=== PATIENT | female | born 1995 | race Caucasian/White ===

== ENCOUNTER 2016-05-09 22:03 | Emergency (ER) | payer OTHER ==
[~2016-05-09] VITALS: Ht 149.8 cm; Wt 57.6 kg
[~2016-05-09 22:03] MED LIST: AMOXICILLIN500 MG PO; ANTIBIOTIC O500 U/GM TP; AUGMENTIN 875 M1 TAB PO; AUGMENTIN 875875 MG PO; BACTRIM DS 8001 TA1 PO; BIRTH CONTROL1 EACH PO; CEPHALEXIN500 M1 PO; CIPROFLOXACIN500 MG PO; CLARITIN10 MG PO; COLACE100 MG PO; IBU800 M1 PO; IRON CHELATED325 MG PO; KEFLEX500 MG PO; MOTRIN600 MG PO; MOTRIN800 MG PO; PHENERGAN25 M1 PO; PREDNICOT10 MG PO; PRENATAL 1 MG +1 TAB PO; PRENATAL1 TA3 PO; PYRIDIUM200 M1 PO; PYRIDIUM200 MG PO; ROBITUSSIN DM120 ML PO; TRAMADOL HCL50 MG PO; TYLENOL325 M2 PO; ZITHROMAX Z PA250 MG PO; ZOFRAN4 MG PO; [UNRECOGNIZED DRUG - REMARK]
[2016-05-09 22:06] VITALS: BP 144/95
[2016-05-09 23:10] LABS: BILIRUBIN NEGATIVE (NEGATIVE); BLOOD NEGATIVE (NEGATIVE); CLARITY CLEAR (CLEAR); COLOR YELLOW (YELLOW); GLUCOSE NEGATIVE (NEGATIVE); KETONE NEGATIVE (NEGATIVE); LEUKO ESTERASE NEGATIVE (NEGATIVE); NITRITE NEGATIVE (NEGATIVE); PROTEIN NEGATIVE (NEGATIVE); UROBILINOGEN 0.2 E.U./dl (0.2-1.0)
[2016-05-09 23:19] LABS: BACTERIA TRACE; URINE REFLEX COMMENT NO (NO)
[2016-05-09] MEDS ORDERED: ZOFRAN ODT4 MG SL (23:55)
[2016-05-09] MEDS ORDERED: TESSALON PERLE100 M1 PO (23:55)
[2016-05-09] MEDS ORDERED: CLARITIN-D 12 H1 TAB PO (23:55)
[2016-06-04] MEDS ORDERED: Motrin,Rufen800 MG PO (10:29)
[2016-06-04] MEDS ORDERED: NORCO 10-325 T1 EACH PO (10:35)
== END 2016-05-10 00:33 | disposition home or self-care (01) ==
LOC: ED 22:03
PROVIDERS: Physician Assistant
DX: B34.9 Viral infection, unspecified (principal); Z98.890 Other specified postprocedural states; Z98.51 Tubal ligation status

== ENCOUNTER 2016-10-26 21:11 | Emergency (ER) | payer OTHER ==
[~2016-10-26] VITALS: Ht 149.8 cm; Wt 60.8 kg
[~2016-10-26 21:11] MED LIST changes: +CLARITIN-D 12 H1 TAB PO; +Motrin,Rufen800 MG PO; +NORCO 10-325 T1 EACH PO; +TESSALON PERLE100 M1 PO; +ZOFRAN ODT4 MG SL
[2016-10-26 21:27] VITALS: BP 134/77
[2016-10-26] MEDS ORDERED: AMOXICILLIN500 M2 PO (21:51)
[2016-10-26] MEDS ORDERED: Motrin,Rufen800 MG PO (21:51)
== END 2016-10-26 21:58 | disposition home or self-care (01) ==
LOC: ED 21:11
DX: K08.89 Other specified disorders of teeth and supporting structures (principal)

== ENCOUNTER 2017-02-21 20:14 | Emergency (ER) | payer SELFPAY ==
[~2017-02-21] VITALS: Ht 149.8 cm; Wt 60.8 kg
[~2017-02-21 20:14] MED LIST changes: +AMOXICILLIN500 M2 PO
[2017-02-21 20:28] VITALS: BP 127/80
[2017-02-21 20:43] LABS: BILIRUBIN NEGATIVE (NEGATIVE); BLOOD 2+ (NEGATIVE); CLARITY CLOUDY (CLEAR); COLOR YELLOW (YELLOW); GLUCOSE NEGATIVE (NEGATIVE); KETONE TRACE (NEGATIVE); LEUKO ESTERASE NEGATIVE (NEGATIVE); NITRITE NEGATIVE (NEGATIVE); PH 8.5 (5.0-9.0); SPECIFIC GRAVITY 1.015 (1.005-1.030)
[2017-02-21 20:54] LABS: BACTERIA 2+
[2017-02-21 21:01] LABS: BASO # 0.1 10*3/uL (0.0-0.1); BASO % 0.5 % (0.0-1.0); EOS # 0.1 10*3/uL (0.0-0.4); EOS % 0.5 % (1.0-4.0); HEMATOCRIT 36.9 % (37.0-47.0); HEMOGLOBIN 11.6 g/dl (12.0-16.0); LYMPH # 2.5 10*3/uL (1.3-4.4); LYMPH % 26.8 % (27.0-41.0); MEAN CELL VOLUME 81.5 fl (81.0-99.0); MEAN CORPUSCULAR HGB 25.6 pg (27.0-31.0); MEAN CORPUSCULAR HGB CONC 31.4 g/dl (33.0-37.0); MEAN PLATELET VOLUME 11.6 fl (9.6-12.3); MONO # 0.7 10*3/uL (0.1-1.0); MONO % 7.1 % (3.0-9.0); NEUT # 6.2 10*3/uL (2.3-7.9); NEUT % 64.9 % (47.0-73.0); PLATELET COUNT AUTOMATED 338 10*3/uL (130-400); RED BLOOD COUNT 4.53 10*6/uL (4.10-5.10); RED CELL DISTRI WIDTH 15.1 % (0-14.5); WHITE BLOOD COUNT 9.5 10*3/uL (4.8-10.8)
[2017-02-21 21:15] LABS: ALBUMIN 3.8 gm/dl (3.1-4.5); ALKALINE PHOSPHATASE 166 U/L (45-117); BUN 12 mg/dl (7-24); CHLORIDE 106 mmol/L (98-107); CREATININE 0.74 mg/dL (0.55-1.02); LIPASE 102 U/L (73-393); POTASSIUM 3.9 mmol/L (3.5-5.1); SGOT/AST 14 IU/L (3-35); SGPT/ALT 25 U/L (12-78); SODIUM 141 mmol/L (136-145); TOTAL PROTEIN 7.9 gm/dL (6.4-8.2)
[2017-02-21] MEDS ORDERED: ULTRAM50 MG PO (21:54)
[2017-02-21] MEDS ORDERED: MACROBID100 M1 PO (21:54)
[2017-02-21] MEDS ORDERED: NYSTATIN CREAM15 GM T (22:03)
== END 2017-02-21 20:40 | disposition home or self-care (01) ==
LOC: ED 20:14
PROVIDERS: Emergency Medicine Emergency Medical Services
DX: N30.90 Cystitis, unspecified without hematuria (principal)

== ENCOUNTER 2017-06-20 19:37 | Emergency (ER) | payer SELFPAY ==
[~2017-06-20] VITALS: Ht 152.4 cm; Wt 56.2 kg
[~2017-06-20 19:37] MED LIST changes: +MACROBID100 M1 PO; +NYSTATIN CREAM15 GM T; +ULTRAM50 MG PO
[2017-06-20 19:57] LABS: BILIRUBIN NEGATIVE (NEGATIVE); BLOOD TRACE-INTACT (NEGATIVE); CLARITY SL CLOUDY (CLEAR); COLOR YELLOW (YELLOW); GLUCOSE NEGATIVE (NEGATIVE); KETONE NEGATIVE (NEGATIVE); LEUKO ESTERASE NEGATIVE (NEGATIVE); NITRITE POSITIVE (NEGATIVE); PH 7.5 (5.0-9.0)
[2017-06-20 20:08] LABS: BACTERIA 4+; WBC 0-2 wbc/hpf (0-5)
[2017-06-20 20:31] VITALS: BP 132/75
[2017-06-20] MEDS ORDERED: MACROBID100 M1 PO (20:47)
[2017-06-20] MEDS ORDERED: Motrin,Rufen800 MG PO (20:47)
[2017-06-20] MEDS ORDERED: CYCLOBENZAPRINE5 M3 PO (20:47)
== END 2017-06-20 20:42 | disposition home or self-care (01) ==
LOC: ED 19:37
PROVIDERS: Emergency Medicine Emergency Medical Services
DX: S39.012A Strain of muscle, fascia and tendon of lower back, initial encounter (principal); N39.0 Urinary tract infection, site not specified; X50.3XXA Overexertion from repetitive movements, initial encounter; Y93.89 Activity, other specified; Y92.89 Other specified places as the place of occurrence of the external cause; Y99.8 Other external cause status

== ENCOUNTER 2018-06-21 12:45 | Emergency (ER) | payer OTHER ==
[~2018-06-21] VITALS: Ht 149.8 cm; Wt 60.8 kg
[~2018-06-21 12:45] MED LIST changes: +CYCLOBENZAPRINE5 M3 PO; +IBUPROFEN600 MG PO; +SEPTDS PO
[2018-06-21 12:46] VITALS: BP 135/85
[2018-06-21 13:05] LABS: BILIRUBIN NEGATIVE (NEGATIVE); BLOOD 2+ (NEGATIVE); CLARITY SL CLOUDY (CLEAR); COLOR YELLOW (YELLOW); GLUCOSE NEGATIVE (NEGATIVE); KETONE NEGATIVE (NEGATIVE); LEUKO ESTERASE NEGATIVE (NEGATIVE); NITRITE NEGATIVE (NEGATIVE); SPECIFIC GRAVITY 1.025 (1.005-1.030); UROBILINOGEN 0.2 E.U./dl (0.2-1.0)
[2018-06-21 13:12] LABS: BASO % 0.3 % (0.0-1.0); EOS # 0.1 10*3/uL (0.0-0.4); EOS % 1.1 % (1.0-4.0); HEMATOCRIT 38.9 % (37.0-47.0); HEMOGLOBIN 11.8 g/dl (12.0-16.0); LYMPH # 1.8 10*3/uL (1.3-4.4); LYMPH % 26.8 % (27.0-41.0); MEAN CELL VOLUME 82.8 fl (81.0-99.0); MEAN CORPUSCULAR HGB 25.1 pg (27.0-31.0); MEAN CORPUSCULAR HGB CONC 30.3 g/dl (33.0-37.0); MEAN PLATELET VOLUME 11.7 fl (9.6-12.3); MONO # 0.8 10*3/uL (0.1-1.0); MONO % 11.7 % (3.0-9.0); NEUT % 59.8 % (47.0-73.0); PLATELET COUNT AUTOMATED 272 10*3/uL (130-400); RED CELL DISTRI WIDTH 16.3 % (0-14.5); WHITE BLOOD COUNT 6.6 10*3/uL (4.8-10.8)
[2018-06-21 13:16] LABS: BACTERIA TRACE; EPITHELIAL CELLS 16-20; MUCOUS 3+
[2018-06-21 13:21] LABS: ACT PARTIAL THROMBO TIME 25.9 SECONDS (20.8-31.5); INTERNATIONAL NORM RATIO 1.1 (2.0-3.5)
[2018-06-21 13:31] LABS: BUN 13 mg/dl (7-24); CHLORIDE 109 mmol/L (98-107); CREATININE 0.75 mg/dL (0.55-1.02); POTASSIUM 3.7 mmol/L (3.5-5.1); SODIUM 141 mmol/L (136-145)
[2018-06-21 13:36] LABS: BETA-HCG, QUANT < 1.0 mIU/mL (1-3)
[2018-08-13] MEDS ORDERED: AMOXICILLIN500 M2 PO (11:57)
[2018-08-13] MEDS ORDERED: FLONASE ALLERG9.9 ML NAS (11:57)
[2018-11-01] MEDS ORDERED: AUGMENTIN 875-875 MG PO (12:12)
[2018-11-01] MEDS ORDERED: CORTISPORIN SUS10 ML OT (12:12)
== END 2018-06-21 14:44 | disposition home or self-care (01) ==
LOC: ED 12:45
PROVIDERS: Emergency Medicine
DX: N92.1 Excessive and frequent menstruation with irregular cycle (principal); F17.200 Nicotine dependence, unspecified, uncomplicated; Z98.890 Other specified postprocedural states; Z98.51 Tubal ligation status; Z79.899 Other long term (current) drug therapy

== ENCOUNTER 2018-10-20 17:07 | Emergency (ER) | payer OTHER ==
[~2018-10-20] VITALS: Ht 152.4 cm; Wt 59.0 kg
[~2018-10-20 17:07] MED LIST changes: +FLONASE ALLERG9.9 ML NAS
[2018-10-20 17:24] LABS: BILIRUBIN NEGATIVE (NEGATIVE); BLOOD 3+ (NEGATIVE); CLARITY SL CLOUDY (CLEAR); COLOR YELLOW (YELLOW); GLUCOSE NEGATIVE (NEGATIVE); KETONE NEGATIVE (NEGATIVE); LEUKO ESTERASE 1+ (NEGATIVE); NITRITE POSITIVE (NEGATIVE); PH 7.5 (5.0-9.0); UROBILINOGEN 0.2 E.U./dl (0.2-1.0)
[2018-10-20 17:31] LABS: BACTERIA 4+; RBC TNTC rbc/hpf (0-2)
[2018-10-20 18:00] LABS: BASO # 0.1 10*3/uL (0.0-0.1); BASO % 0.4 % (0.0-1.0); EOS % 0.3 % (1.0-4.0); HEMATOCRIT 38.7 % (37.0-47.0); HEMOGLOBIN 12.1 g/dl (12.0-16.0); LYMPH # 1.4 10*3/uL (1.3-4.4); LYMPH % 11.8 % (27.0-41.0); MEAN CORPUSCULAR HGB 25.6 pg (27.0-31.0); MEAN CORPUSCULAR HGB CONC 31.3 g/dl (33.0-37.0); MEAN PLATELET VOLUME 12.2 fl (9.6-12.3); MONO # 0.8 10*3/uL (0.1-1.0); MONO % 6.6 % (3.0-9.0); NEUT # 9.5 10*3/uL (2.3-7.9); NEUT % 80.6 % (47.0-73.0); PLATELET COUNT AUTOMATED 275 10*3/uL (130-400); RED BLOOD COUNT 4.72 10*6/uL (4.10-5.10); RED CELL DISTRI WIDTH 15.4 % (0-14.5); WHITE BLOOD COUNT 11.8 10*3/uL (4.8-10.8)
[2018-10-20 18:14] LABS: ALBUMIN 3.9 gm/dl (3.1-4.5); ALKALINE PHOSPHATASE 129 U/L (45-117); BUN 14 mg/dl (7-24); CHLORIDE 104 mmol/L (98-107); CREATININE 0.72 mg/dL (0.55-1.02); LIPASE 48 U/L (73-393); POTASSIUM 3.9 mmol/L (3.5-5.1); SGOT/AST 11 IU/L (3-35); SGPT/ALT 16 U/L (12-78); SODIUM 138 mmol/L (136-145); TOTAL PROTEIN 8.2 gm/dL (6.4-8.2)
[2018-10-20 19:37] VITALS: BP 115/63
[2018-10-20] MEDS ORDERED: SEPTDS PO (20:47)
[2018-10-20] MEDS ORDERED: PYRIDIUM100 MG PO (20:47)
[2018-11-01] MEDS ORDERED: AUGMENTIN 875-875 MG PO (12:12)
[2018-11-01] MEDS ORDERED: CORTISPORIN SUS10 ML OT (12:12)
== END 2018-10-20 20:56 | disposition home or self-care (01) ==
LOC: ED 17:07
PROVIDERS: Nurse Practitioner Family
DX: N39.0 Urinary tract infection, site not specified (principal); R51 Headache; M54.2 Cervicalgia; R50.9 Fever, unspecified; F17.200 Nicotine dependence, unspecified, uncomplicated; Z87.440 Personal history of urinary (tract) infections

== ENCOUNTER 2019-03-17 18:27 | Emergency (ER) | payer OTHER ==
[~2019-03-17] VITALS: Ht 149.8 cm; Wt 60.8 kg
[~2019-03-17 18:27] MED LIST changes: +AUGMENTIN 875-875 MG PO; +CORTISPORIN SUS10 ML OT; +PYRIDIUM100 MG PO
[2019-03-17 18:30] VITALS: BP 128/79
[2019-03-17] MEDS ORDERED: ZYRTEC10 MG PO (19:22)
[2019-03-17] MEDS ORDERED: AMOXICILLIN500 M2 PO (19:22)
== END 2019-03-17 19:30 | disposition home or self-care (01) ==
LOC: ED 18:27
DX: H66.92 Otitis media, unspecified, left ear (principal); H92.01 Otalgia, right ear; J02.9 Acute pharyngitis, unspecified; R05 Cough; R51 Headache; R09.81 Nasal congestion; R19.7 Diarrhea, unspecified; F17.200 Nicotine dependence, unspecified, uncomplicated

== ENCOUNTER 2019-06-01 12:04 | Emergency (ER) | payer OTHER ==
[~2019-06-01] VITALS: Ht 149.8 cm; Wt 60.8 kg
[~2019-06-01 12:04] MED LIST changes: +ZYRTEC10 MG PO
[2019-06-01 12:42] LABS: CLARITY SL CLOUDY (CLEAR)
[2019-06-01 12:43] LABS: BILIRUBIN NEGATIVE (NEGATIVE); BLOOD 3+ (NEGATIVE); COLOR ORANGE (YELLOW); GLUCOSE NEGATIVE (NEGATIVE); KETONE NEGATIVE (NEGATIVE); LEUKO ESTERASE 2+ (NEGATIVE); NITRITE POSITIVE (NEGATIVE); PH 6.5 (5.0-9.0); UROBILINOGEN 0.2 E.U./dl (0.2-1.0)
[2019-06-01 12:51] LABS: BACTERIA 3+; RBC 16-20 rbc/hpf (0-2); WBC TNTC wbc/hpf (0-5)
[2019-06-01 14:05] LABS: BASO % 0.3 % (0.0-1.0); EOS % 0.1 % (1.0-4.0); HEMATOCRIT 40.8 % (37.0-47.0); HEMOGLOBIN 12.7 g/dl (12.0-16.0); LYMPH # 0.9 10*3/uL (1.3-4.4); LYMPH % 7.9 % (27.0-41.0); MEAN CELL VOLUME 84.5 fl (81.0-99.0); MEAN CORPUSCULAR HGB 26.3 pg (27.0-31.0); MEAN CORPUSCULAR HGB CONC 31.1 g/dl (33.0-37.0); MEAN PLATELET VOLUME 12.5 fl (9.6-12.3); MONO # 1.2 10*3/uL (0.1-1.0); MONO % 11.1 % (3.0-9.0); NEUT # 8.7 10*3/uL (2.3-7.9); NEUT % 80.3 % (47.0-73.0); PLATELET COUNT AUTOMATED 239 10*3/uL (130-400); RED BLOOD COUNT 4.83 10*6/uL (4.10-5.10); RED CELL DISTRI WIDTH 14.5 % (0-14.5); WHITE BLOOD COUNT 10.9 10*3/uL (4.8-10.8)
[2019-06-01 14:21] LABS: ALBUMIN 3.9 gm/dl (3.1-4.5); ALKALINE PHOSPHATASE 121 U/L (45-117); BUN 8 mg/dl (7-24); CHLORIDE 105 mmol/L (98-107); CREATININE 0.87 mg/dL (0.55-1.02); LIPASE 37 U/L (73-393); POTASSIUM 3.4 mmol/L (3.5-5.1); SGOT/AST 19 IU/L (3-35); SGPT/ALT 34 U/L (12-78); SODIUM 137 mmol/L (136-145); TOTAL PROTEIN 8.6 gm/dL (6.4-8.2)
[2019-06-01 14:41] VITALS: BP 121/69
[2019-06-01] MEDS ORDERED: PYRIDIUM200 M1 PO (15:55)
[2019-06-01] MEDS ORDERED: SEPTDS PO (15:55)
[2019-06-01] MEDS ORDERED: IBUPROFEN600 MG PO (15:55)
== END 2019-06-01 16:03 | disposition home or self-care (01) ==
LOC: ED 12:04
PROVIDERS: Emergency Medicine; Physician Assistant
DX: N39.0 Urinary tract infection, site not specified (principal); Z79.899 Other long term (current) drug therapy

== ENCOUNTER 2019-12-11 13:58 | Emergency (ER) | payer OTHER ==
[~2019-12-11] VITALS: Wt 62.6 kg
[2019-12-11 14:09] VITALS: BP 117/71
[2019-12-11 14:43] LABS: BASO # 0.1 10*3/uL (0.0-0.1); BASO % 0.6 % (0.0-1.0); EOS # 0.1 10*3/uL (0.0-0.4); EOS % 0.9 % (1.0-4.0); HEMATOCRIT 39.7 % (37.0-47.0); LYMPH # 1.8 10*3/uL (1.3-4.4); LYMPH % 22.4 % (27.0-41.0); MEAN CELL VOLUME 83.1 fl (81.0-99.0); MEAN CORPUSCULAR HGB 25.9 pg (27.0-31.0); MEAN CORPUSCULAR HGB CONC 31.2 g/dl (33.0-37.0); MEAN PLATELET VOLUME 11.7 fl (9.6-12.3); MONO # 0.6 10*3/uL (0.1-1.0); MONO % 7.3 % (3.0-9.0); NEUT # 5.6 10*3/uL (2.3-7.9); NEUT % 68.7 % (47.0-73.0); PLATELET COUNT AUTOMATED 313 10*3/uL (130-400); RED BLOOD COUNT 4.78 10*6/uL (4.10-5.10); RED CELL DISTRI WIDTH 14.6 % (0-14.5); WHITE BLOOD COUNT 8.1 10*3/uL (4.8-10.8)
[2019-12-11 14:43] LABS: BILIRUBIN NEGATIVE; BLOOD 3+ (NEGATIVE); CLARITY CLOUDY (CLEAR); COLOR YELLOW (YELLOW); GLUCOSE NEGATIVE; KETONE NEGATIVE; LEUKO ESTERASE NEGATIVE (NEGATIVE); NITRITE NEGATIVE (NEGATIVE); SPECIFIC GRAVITY 1.015 (1.001-1.030)
[2019-12-11 14:48] LABS: BACTERIA 4+; RBC 0-2 rbc/hpf (0-2)
[2019-12-11 14:53] LABS: ALBUMIN 3.9 gm/dl (3.1-4.5); ALKALINE PHOSPHATASE 128 U/L (45-117); BUN 10 mg/dl (7-24); CHLORIDE 110 mmol/L (98-107); CREATININE 0.83 mg/dL (0.55-1.02); POTASSIUM 3.8 mmol/L (3.5-5.1); SGOT/AST 13 IU/L (3-35); SGPT/ALT 17 U/L (12-78); SODIUM 141 mmol/L (136-145); TOTAL PROTEIN 8.1 gm/dL (6.4-8.2)
[2019-12-11 15:01] LABS: BETA-HCG, QUANT < 1.0 mIU/mL (1-3)
== END 2019-12-11 15:43 | disposition home or self-care (01) ==
LOC: ED 13:58
PROVIDERS: Nurse Practitioner Family
DX: N93.8 Other specified abnormal uterine and vaginal bleeding (principal); Z98.890 Other specified postprocedural states; Z98.51 Tubal ligation status; Z79.899 Other long term (current) drug therapy

== ENCOUNTER 2019-12-28 13:58 | Emergency (ER) | payer OTHER ==
[~2019-12-28] VITALS: Ht 149.8 cm; Wt 60.8 kg
[2019-12-28 14:07] VITALS: BP 124/82
== END 2019-12-28 16:28 | disposition home or self-care (01) ==
LOC: ED 13:58
DX: S63.502A Unspecified sprain of left wrist, initial encounter (principal); F17.200 Nicotine dependence, unspecified, uncomplicated; Z79.899 Other long term (current) drug therapy; X58.XXXA Exposure to other specified factors, initial encounter; Y93.89 Activity, other specified; Y92.89 Other specified places as the place of occurrence of the external cause; Y99.8 Other external cause status

== ENCOUNTER 2020-05-09 18:29 | Emergency (ER) | payer OTHER ==
[~2020-05-09] VITALS: Ht 149.8 cm; Wt 59.0 kg
[2020-05-09 19:39] LABS: BILIRUBIN Negative (Negative); BLOOD Negative (Negative); CLARITY Cloudy (Clear); COLOR Yellow (Yellow); GLUCOSE Negative (Negative); KETONE Negative (Negative); LEUKO ESTERASE Negative (Negative); NITRITE Negative (Negative); UROBILINOGEN 0.2 E.U./dl (0.0-1.0)
[2020-05-09 19:49] LABS: PH 8.5 (4.5-8.0)
[2020-05-09 19:52] LABS: BASO # 0.1 10*3/uL (0.0-0.1); BASO % 0.5 % (0.0-1.0); EOS % 0.3 % (1.0-4.0); HEMATOCRIT 39.1 % (37.0-47.0); LYMPH # 0.4 10*3/uL (1.3-4.4); LYMPH % 3.8 % (27.0-41.0); MEAN CELL VOLUME 83.7 fl (81.0-99.0); MEAN CORPUSCULAR HGB 25.3 pg (27.0-31.0); MEAN CORPUSCULAR HGB CONC 30.2 g/dl (33.0-37.0); MEAN PLATELET VOLUME 11.5 fl (9.6-12.3); MONO # 0.9 10*3/uL (0.1-1.0); MONO % 8.1 % (3.0-9.0); NEUT # 9.7 10*3/uL (2.3-7.9); NEUT % 86.8 % (47.0-73.0); PLATELET COUNT AUTOMATED 290 10*3/uL (130-400); RED BLOOD COUNT 4.67 10*6/uL (4.10-5.10); RED CELL DISTRI WIDTH 15.3 % (0-14.5); WHITE BLOOD COUNT 11.1 10*3/uL (4.8-10.8)
[2020-05-09 19:54] LABS: EPITHELIAL CELLS 16-20
[2020-05-09 19:55] LABS: BACTERIA 1+; RBC 0-2 rbc/hpf (0-2); WBC 0-2 wbc/hpf (0-5)
[2020-05-09 20:08] LABS: ALKALINE PHOSPHATASE 146 U/L (45-117); BUN 10 mg/dl (7-24); CHLORIDE 105 mmol/L (98-107); CREATININE 0.85 mg/dL (0.55-1.02); POTASSIUM 3.9 mmol/L (3.5-5.1); SGOT/AST 15 IU/L (3-35); SGPT/ALT 29 U/L (12-78); SODIUM 137 mmol/L (136-145); TOTAL PROTEIN 8.1 gm/dL (6.4-8.2)
[2020-05-09 22:51] VITALS: BP 120/74
[2020-05-10 01:34] LABS: URINE AMPHETAMINES < 1000 (1000ng/ml); URINE BARBITURATES < 200 (200ng/ml); URINE BENZODIAZEPINES < 200 (200ng/ml); URINE CANNABINOIDS (THC) > 50 (50ng/ml); URINE COCAINE < 300 (300ng/ml); URINE METHADONE < 300 (300ng/ml); URINE OPIATES < 300 (300ng/ml)
[2020-05-10 01:35] LABS: URINE PHENCYCLIDINE < 25 (25ng/ml)
== END 2020-05-10 02:37 | disposition left against medical advice (07) ==
LOC: ED 18:29
PROVIDERS: Emergency Medicine
DX: U07.1 COVID-19 (principal)

== ENCOUNTER 2020-12-11 12:13 | Emergency (ER) | payer OTHER ==
[~2020-12-11] VITALS: Ht 162.5 cm; Wt 77.1 kg
[2020-12-11 12:35] VITALS: BP 126/70
== END 2020-12-11 13:25 | disposition home or self-care (01) ==
LOC: ED 12:13
DX: U07.1 COVID-19 (principal); R69 Illness, unspecified

== ENCOUNTER 2021-02-08 09:50 | Emergency (ER) | payer OTHER ==
[~2021-02-08] VITALS: Ht 149.8 cm; Wt 74.4 kg
[2021-02-08 09:58] VITALS: BP 142/89
[2021-02-08 10:27] LABS: BILIRUBIN Negative (Negative); BLOOD 1+ (Negative); CLARITY Cloudy (Clear); COLOR Yellow (Yellow); GLUCOSE Negative (Negative); KETONE Negative (Negative); LEUKO ESTERASE 2+ (Negative); NITRITE Negative (Negative); PH 6.5 (4.5-8.0); UROBILINOGEN 0.2 E.U./dl (0.0-1.0)
[2021-02-08 10:51] LABS: BACTERIA 3+; EPITHELIAL CELLS 16-20; RBC 21-30 rbc/hpf (0-2); WBC 51-100 wbc/hpf (0-5)
[2021-02-08] MEDS ORDERED: MACROBID100 M1 PO (11:17)
== END 2021-02-08 11:22 | disposition home or self-care (01) ==
LOC: ED 09:50
PROVIDERS: Emergency Medicine
DX: N39.0 Urinary tract infection, site not specified (principal)

== ENCOUNTER 2021-10-16 12:10 | Emergency (ER) | payer OTHER ==
[~2021-10-16] VITALS: Ht 124.4 cm; Wt 90.7 kg
[2021-10-16 13:27] LABS: BILIRUBIN Negative (Negative); BLOOD Negative (Negative); CLARITY Cloudy (Clear); COLOR Yellow (Yellow); GLUCOSE Negative (Negative); KETONE Trace (Negative); LEUKO ESTERASE Trace (Negative); NITRITE Negative (Negative); PH 7.5 (4.5-8.0); SPECIFIC GRAVITY 1.025 (1.001-1.030)
[2021-10-16 13:35] LABS: EPITHELIAL CELLS 31-40; MUCOUS 3+
[2021-10-16 13:36] LABS: BACTERIA 2+
[2021-10-16 14:40] LABS: BASO % 0.5 % (0.0-1.0); EOS # 0.1 10*3/uL (0.0-0.4); EOS % 0.8 % (1.0-4.0); HEMATOCRIT 39.3 % (37.0-47.0); LYMPH # 1.9 10*3/uL (1.3-4.4); LYMPH % 23.3 % (27.0-41.0); MEAN CELL VOLUME 83.6 fl (81.0-99.0); MEAN CORPUSCULAR HGB 25.5 pg (27.0-31.0); MEAN CORPUSCULAR HGB CONC 30.5 g/dl (33.0-37.0); MEAN PLATELET VOLUME 11.4 fl (9.6-12.3); MONO # 0.5 10*3/uL (0.1-1.0); MONO % 6.4 % (3.0-9.0); NEUT # 5.7 10*3/uL (2.3-7.9); NEUT % 68.6 % (47.0-73.0); PLATELET COUNT AUTOMATED 312 10*3/uL (130-400); RED CELL DISTRI WIDTH 15.3 % (0-14.5); WHITE BLOOD COUNT 8.3 10*3/uL (4.8-10.8)
[2021-10-16 14:58] LABS: ALKALINE PHOSPHATASE 133 U/L (45-117); BUN 9 mg/dl (7-24); CHLORIDE 109 mmol/L (98-107); CREATININE 0.63 mg/dL (0.55-1.02); LIPASE 68 U/L (73-393); POTASSIUM 4.1 mmol/L (3.5-5.1); SGOT/AST 15 IU/L (3-35); SGPT/ALT 16 U/L (12-78); SODIUM 140 mmol/L (136-145); TOTAL PROTEIN 7.3 gm/dL (6.4-8.2)
[2021-10-16 15:33] VITALS: BP 126/74
== END 2021-10-16 17:12 | disposition home or self-care (01) ==
LOC: ED 12:10
PROVIDERS: Nurse Practitioner Family
DX: A08.4 Viral intestinal infection, unspecified (principal); Z87.442 Personal history of urinary calculi; F17.200 Nicotine dependence, unspecified, uncomplicated; Z98.51 Tubal ligation status

== ENCOUNTER 2022-03-15 09:03 | Emergency (ER) | payer OTHER ==
[~2022-03-15] VITALS: Ht 180.3 cm; Wt 70.3 kg
[2022-03-15 09:36] VITALS: BP 126/88
[2022-03-15 10:40] LABS: BASO % 0.5 % (0.0-1.0); EOS % 0.1 % (1.0-4.0); HEMATOCRIT 41.9 % (37.0-47.0); LYMPH # 0.7 10*3/uL (1.3-4.4); LYMPH % 9.3 % (27.0-41.0); MEAN CELL VOLUME 81.2 fl (81.0-99.0); MEAN CORPUSCULAR HGB 25.4 pg (27.0-31.0); MEAN CORPUSCULAR HGB CONC 31.3 g/dl (33.0-37.0); MEAN PLATELET VOLUME 11.2 fl (9.6-12.3); MONO # 0.6 10*3/uL (0.1-1.0); MONO % 7.6 % (3.0-9.0); NEUT # 6.3 10*3/uL (2.3-7.9); NEUT % 82.1 % (47.0-73.0); PLATELET COUNT AUTOMATED 296 10*3/uL (130-400); RED BLOOD COUNT 5.16 10*6/uL (4.10-5.10); RED CELL DISTRI WIDTH 15.5 % (0-14.5); WHITE BLOOD COUNT 7.7 10*3/uL (4.8-10.8)
[2022-03-15 10:52] LABS: BILIRUBIN Negative (Negative); BLOOD 3+ (Negative); CLARITY Cloudy (Clear); COLOR Yellow (Yellow); GLUCOSE Negative (Negative); KETONE Trace (Negative); LEUKO ESTERASE 2+ (Negative); NITRITE Negative (Negative); PH 6.5 (4.5-8.0); UROBILINOGEN 0.2 E.U./dl (0.0-1.0)
[2022-03-15 10:56] LABS: ALKALINE PHOSPHATASE 148 U/L (45-117); BUN 7 mg/dl (7-24); CHLORIDE 105 mmol/L (98-107); CREATININE 0.75 mg/dL (0.55-1.02); SGPT/ALT 24 U/L (12-78); SODIUM 134 mmol/L (136-145); TOTAL PROTEIN 8.4 gm/dL (6.4-8.2)
[2022-03-15 11:08] LABS: BACTERIA 3+; RBC TNTC rbc/hpf (0-2); WBC 21-30 wbc/hpf (0-5)
[2022-03-15] MEDS ORDERED: DIFLUCAN150 MG PO (12:39)
[2022-03-15] MEDS ORDERED: CEPHALEXIN500 M1 PO (12:39)
== END 2022-03-15 12:32 | disposition home or self-care (01) ==
LOC: ED 09:03
PROVIDERS: Family Medicine
DX: N39.0 Urinary tract infection, site not specified (principal); R32 Unspecified urinary incontinence; Z20.822 Contact with and (suspected) exposure to COVID-19; Z98.890 Other specified postprocedural states

== ENCOUNTER 2022-03-29 07:51 | Emergency (ER) | payer OTHER ==
[~2022-03-29] VITALS: Ht 58.4 cm; Wt 70.3 kg
[~2022-03-29 07:51] MED LIST changes: +DIFLUCAN150 MG PO
[2022-03-29 08:19] VITALS: BP 112/70
[2022-03-29 09:00] LABS: BASO # 0.1 10*3/uL (0.0-0.1); BASO % 0.5 % (0.0-1.0); EOS # 0.1 10*3/uL (0.0-0.4); EOS % 0.4 % (1.0-4.0); HEMATOCRIT 42.5 % (37.0-47.0); LYMPH # 2.3 10*3/uL (1.3-4.4); LYMPH % 15.6 % (27.0-41.0); MEAN CELL VOLUME 80.2 fl (81.0-99.0); MEAN CORPUSCULAR HGB 25.5 pg (27.0-31.0); MEAN CORPUSCULAR HGB CONC 31.8 g/dl (33.0-37.0); MEAN PLATELET VOLUME 11.8 fl (9.6-12.3); MONO # 0.6 10*3/uL (0.1-1.0); MONO % 4.2 % (3.0-9.0); NEUT # 11.8 10*3/uL (2.3-7.9); NEUT % 78.7 % (47.0-73.0); PLATELET COUNT AUTOMATED 410 10*3/uL (130-400); RED CELL DISTRI WIDTH 15.8 % (0-14.5)
[2022-03-29 09:16] LABS: ALKALINE PHOSPHATASE 163 U/L (46-116); BUN 9 mg/dl (9-23); CHLORIDE 103 mmol/L (98-107); CREATININE 0.79 mg/dL (0.55-1.02); LIPASE 29 U/L (12-53); POTASSIUM 4.1 mmol/L (3.4-5.1); SGPT/ALT 24 U/L (10-49); SODIUM 138 mmol/L (136-145); TOTAL PROTEIN 8.5 gm/dL (6.0-8.0)
[2022-03-29 09:20] LABS: BETA-HCG, QUANT < 0.0 mIU/mL (0-10)
[2022-03-29 09:21] LABS: BILIRUBIN Negative (Negative); BLOOD 3+ (Negative); CLARITY Turbid (Clear); COLOR Yellow (Yellow); GLUCOSE Negative (Negative); KETONE Negative (Negative)
[2022-03-29 09:22] LABS: NITRITE Negative (Negative); UROBILINOGEN 0.2 E.U./dl (0.0-1.0)
[2022-03-29 09:31] LABS: LEUKO ESTERASE 1+ (Negative); MUCOUS 1+; WBC 51-100 wbc/hpf (0-5)
[2022-03-29 09:32] LABS: BACTERIA 2+
== END 2022-03-29 12:10 | disposition home or self-care (01) ==
LOC: ED 07:51
PROVIDERS: Emergency Medicine
DX: A41.9 Sepsis, unspecified organism (principal); N39.0 Urinary tract infection, site not specified; N13.2 Hydronephrosis with renal and ureteral calculous obstruction; Z87.442 Personal history of urinary calculi; F17.200 Nicotine dependence, unspecified, uncomplicated; Z98.51 Tubal ligation status

== ENCOUNTER → 2022-04-04 | Outpatient (CLI) | payer OTHER | END | disposition home or self-care (01) | LOC: RAD 09:40 | PROVIDERS: ATTEND Urology | DX: N20.0 Calculus of kidney (principal); M41.84 Other forms of scoliosis, thoracic region ==

== ENCOUNTER → 2022-05-02 | Outpatient (CLI) | payer OTHER | END | disposition home or self-care (01) | LOC: RAD 12:29 | PROVIDERS: ATTEND Urology | DX: N20.0 Calculus of kidney (principal) ==

== ENCOUNTER → 2022-06-06 | Outpatient (CLI) | payer OTHER | END | disposition home or self-care (01) | LOC: CT 10:53 | PROVIDERS: ATTEND Urology | DX: K76.0 Fatty (change of) liver, not elsewhere classified (principal) ==

== ENCOUNTER 2022-08-14 10:31 | Emergency (ER) | payer OTHER ==
[~2022-08-14] VITALS: Ht 149.8 cm; Wt 68.0 kg
[2022-08-14] MEDS ORDERED: AMOX-CLAV 875-1 EACH PO (10:40)
[2022-08-14 10:43] VITALS: BP 142/80
[2022-08-14 11:14] LABS: BASO # 0.1 10*3/uL (0.0-0.1); BASO % 0.5 % (0.0-1.0); EOS # 0.1 10*3/uL (0.0-0.4); EOS % 1.1 % (1.0-4.0); HEMATOCRIT 40.2 % (37.0-47.0); LYMPH # 1.9 10*3/uL (1.3-4.4); LYMPH % 21.1 % (27.0-41.0); MEAN CELL VOLUME 81.2 fl (81.0-99.0); MEAN CORPUSCULAR HGB 25.3 pg (27.0-31.0); MEAN CORPUSCULAR HGB CONC 31.1 g/dl (33.0-37.0); MEAN PLATELET VOLUME 11.7 fl (9.6-12.3); MONO # 0.5 10*3/uL (0.1-1.0); MONO % 5.3 % (3.0-9.0); NEUT # 6.6 10*3/uL (2.3-7.9); NEUT % 71.8 % (47.0-73.0); PLATELET COUNT AUTOMATED 350 10*3/uL (130-400); RED BLOOD COUNT 4.95 10*6/uL (4.10-5.10); RED CELL DISTRI WIDTH 15.9 % (0-14.5); WHITE BLOOD COUNT 9.2 10*3/uL (4.8-10.8)
[2022-08-14 11:34] LABS: ALKALINE PHOSPHATASE 147 U/L (46-116); BUN 8 mg/dl (9-23); CHLORIDE 107 mmol/L (98-107); SGPT/ALT 8 U/L (10-49); TOTAL PROTEIN 7.9 gm/dL (6.0-8.0)
[2022-08-14] MEDS ORDERED: PREDNISONE50 MG PO (11:56)
== END 2022-08-14 12:05 | disposition home or self-care (01) ==
LOC: ED 10:31
PROVIDERS: Student in an Organized Health Care Education/Training Program
DX: B34.9 Viral infection, unspecified (principal); H92.01 Otalgia, right ear; R68.84 Jaw pain; Z98.51 Tubal ligation status; Z98.890 Other specified postprocedural states

== ENCOUNTER 2022-10-31 12:14 | Emergency (ER) | payer OTHER ==
[~2022-10-31] VITALS: Wt 68.0 kg
[~2022-10-31 12:14] MED LIST changes: +AMOX-CLAV 875-1 EACH PO; +PREDNISONE50 MG PO
[2022-10-31 12:27] VITALS: BP 138/94
== END 2022-10-31 16:24 | disposition left against medical advice (07) ==
LOC: ED 12:14
DX: R09.81 Nasal congestion (principal); R05.9 Cough, unspecified; Z53.21 Procedure and treatment not carried out due to patient leaving prior to being seen by health care provider

== ENCOUNTER 2023-10-22 20:29 | Emergency (ER) | payer OTHER ==
[~2023-10-22] VITALS: Ht 149.8 cm; Wt 68.0 kg
[2023-10-22] MEDS ORDERED: SODIUM CHLORIDE 0.9% 1,000 ML IV ONE (20:45)
[2023-10-22] MEDS ORDERED: Ketorolac Tromethamine 30 MG/ML VIAL IV ONE (20:45)
[2023-10-22 20:47] VITALS: BP 151/85
[2023-10-22 21:00] LABS: BASO # 0.1 10*3/uL (0.0-0.1); BASO % 0.7 % (0.0-1.0); EOS # 0.1 10*3/uL (0.0-0.4); EOS % 1.3 % (1.0-4.0); HEMATOCRIT 39.3 % (37.0-47.0); LYMPH # 2.6 10*3/uL (1.3-4.4); LYMPH % 24.1 % (27.0-41.0); MEAN CELL VOLUME 83.8 fl (81.0-99.0); MEAN PLATELET VOLUME 11.5 fl (9.6-12.3); MONO # 0.6 10*3/uL (0.1-1.0); MONO % 5.7 % (3.0-9.0); NEUT # 7.3 10*3/uL (2.3-7.9); NEUT % 67.7 % (47.0-73.0); PLATELET COUNT AUTOMATED 289 10*3/uL (130-400); RED BLOOD COUNT 4.69 10*6/uL (4.10-5.10); RED CELL DISTRI WIDTH 15.8 % (0-14.5); WHITE BLOOD COUNT 10.8 10*3/uL (4.8-10.8)
[2023-10-22 21:26] LABS: ALKALINE PHOSPHATASE 159 U/L (46-116); BUN 11 mg/dl (9-23); CHLORIDE 106 mmol/L (98-107); LIPASE 32 U/L (12-53); POTASSIUM 3.9 mmol/L (3.4-5.1); SGPT/ALT 24 U/L (5-49); TOTAL PROTEIN 7.6 gm/dL (6.0-8.0)
[2023-10-22 21:39] LABS: BILIRUBIN Negative (Negative); BLOOD Negative (Negative); CLARITY Cloudy (Clear); COLOR Yellow (Yellow); GLUCOSE Negative (Negative); KETONE Negative (Negative); LEUKO ESTERASE 1+ (Negative); NITRITE Negative (Negative); PH 5.5 (4.5-8.0)
[2023-10-22 21:52] LABS: BACTERIA 2+
[2023-10-22] MEDS ORDERED: MELOXICAM15 MG PO (23:13)
[2023-10-22] MEDS ORDERED: ACETAMINOPHEN 325 MG TAB PO ONE (23:15)
== END 2023-10-22 23:25 | disposition home or self-care (01) ==
LOC: ED 20:29
PROVIDERS: Physician Assistant Medical
DX: M54.50 Low back pain, unspecified (principal); R30.0 Dysuria; Z98.890 Other specified postprocedural states; Z87.442 Personal history of urinary calculi

== ENCOUNTER 2023-12-03 11:50 | Emergency (ER) | payer OTHER ==
[~2023-12-03] VITALS: Ht 149.8 cm; Wt 74.8 kg
[~2023-12-03 11:50] MED LIST changes: +MELOXICAM15 MG PO
[2023-12-03 11:54] VITALS: BP 136/86
[2023-12-03] MEDS ORDERED: CIPROFLOXACIN H10 ML OPH (12:14)
[2023-12-03 13:02] LABS: ALKALINE PHOSPHATASE 163 U/L (46-116); BUN 12 mg/dl (9-23); CHLORIDE 105 mmol/L (98-107); POTASSIUM 3.7 mmol/L (3.4-5.1); SGPT/ALT 17 U/L (5-49); TOTAL PROTEIN 7.7 gm/dL (6.0-8.0)
== END 2023-12-03 13:02 | disposition home or self-care (01) ==
LOC: ED 11:50
PROVIDERS: Emergency Medicine
DX: H10.9 Unspecified conjunctivitis (principal); Z87.442 Personal history of urinary calculi; Z98.890 Other specified postprocedural states; Z98.51 Tubal ligation status

== ENCOUNTER 2023-12-19 04:26 | Emergency (ER) | payer OTHER ==
[~2023-12-19] VITALS: Ht 149.8 cm; Wt 70.3 kg
[~2023-12-19 04:26] MED LIST changes: +CIPROFLOXACIN H10 ML OPH
[2023-12-19 04:49] VITALS: BP 133/82
[2023-12-19] MEDS ORDERED: methylPREDNISolone sod succ 125 MG VIAL IM ONE (05:30)
== END 2023-12-19 05:50 | disposition home or self-care (01) ==
LOC: ED 04:26
DX: U07.1 COVID-19 (principal); Z87.442 Personal history of urinary calculi; Z98.51 Tubal ligation status; Z98.890 Other specified postprocedural states

== ENCOUNTER 2024-01-24 12:43 | Emergency (ER) | payer OTHER ==
[~2024-01-24] VITALS: Wt 74.8 kg
[2024-01-24 12:50] VITALS: BP 140/76
[2024-01-24] MEDS ORDERED: AVPAK AZITHROM250 M1 PO (14:06)
[2024-01-24] MEDS ORDERED: PREDNISONE20 M1 PO (14:06)
[2024-01-24] MEDS ORDERED: AZITHROMYCIN 250 MG TAB PO ONE (14:10)
[2024-01-24] MEDS ORDERED: methylPREDNISolone sod succ 125 MG VIAL IM ONE (14:10)
== END 2024-01-24 14:14 | disposition home or self-care (01) ==
LOC: ED 12:43
DX: J40 Bronchitis, not specified as acute or chronic (principal); Z20.822 Contact with and (suspected) exposure to COVID-19; Z98.51 Tubal ligation status; Z98.890 Other specified postprocedural states; Z87.442 Personal history of urinary calculi

== ENCOUNTER 2024-06-28 11:58 | Emergency (ER) | payer OTHER ==
[~2024-06-28] VITALS: Ht 149.8 cm; Wt 82.6 kg
[~2024-06-28 11:58] MED LIST changes: +AVPAK AZITHROM250 M1 PO; +PREDNISONE20 M1 PO
[2024-06-28 12:13] VITALS: BP 129/79
[2024-06-28] MEDS ORDERED: Ketorolac Tromethamine 30 MG/ML VIAL IV ONE (12:25)
[2024-06-28] MEDS ORDERED: diphenhydrAMINE hydrochloride 50 MG/ML VIAL IV ONE (12:25)
[2024-06-28] MEDS ORDERED: SODIUM CHLORIDE 0.9% 1,000 ML IV ONE (12:25)
[2024-06-28] MEDS ORDERED: Metoclopramide Hydrochloride 10 MG/2 ML VIAL IV ONE (12:25)
[2024-06-28 12:47] LABS: BASO # 0.1 10*3/uL (0.0-0.1); BASO % 0.8 % (0.0-1.0); EOS # 0.1 10*3/uL (0.0-0.4); EOS % 1.2 % (1.0-4.0); HEMATOCRIT 45.4 % (37.0-47.0); MEAN CELL VOLUME 81.7 fl (81.0-99.0); MEAN CORPUSCULAR HGB 24.8 pg (27.0-31.0); MEAN CORPUSCULAR HGB CONC 30.4 g/dl (33.0-37.0); MEAN PLATELET VOLUME 11.6 fl (9.6-12.3); MONO # 0.7 10*3/uL (0.1-1.0); MONO % 7.3 % (3.0-9.0); NEUT # 6.2 10*3/uL (2.3-7.9); NEUT % 69.5 % (47.0-73.0); PLATELET COUNT AUTOMATED 372 10*3/uL (130-400); RED BLOOD COUNT 5.56 10*6/uL (4.10-5.10); RED CELL DISTRI WIDTH 15.3 % (0-14.5); WHITE BLOOD COUNT 8.9 10*3/uL (4.8-10.8)
[2024-06-28 13:15] LABS: BUN 13 mg/dl (9-23); CHLORIDE 102 mmol/L (98-107); POTASSIUM 4.3 mmol/L (3.4-5.1)
[2024-06-28 13:56] LABS: BILIRUBIN Negative (Negative); BLOOD Negative (Negative); CLARITY Clear (Clear); COLOR Yellow (Yellow); GLUCOSE Negative (Negative); KETONE Negative (Negative); LEUKO ESTERASE Negative (Negative); NITRITE Negative (Negative); SPECIFIC GRAVITY 1.015 (1.001-1.030); UROBILINOGEN 0.2 E.U./dl (0.0-1.0)
[2024-06-28 14:11] LABS: RBC 0-2 rbc/hpf (0-2); WBC 0-2 wbc/hpf (0-5)
[2024-06-28] MEDS ORDERED: CYCLOBENZAPRINE10 MG PO (15:38)
== END 2024-06-28 15:46 | disposition home or self-care (01) ==
LOC: ED 11:58
PROVIDERS: Nurse Practitioner Family
DX: S39.012A Strain of muscle, fascia and tendon of lower back, initial encounter (principal); R51.9 Headache, unspecified; Z87.42 Personal history of other diseases of the female genital tract; Z98.890 Other specified postprocedural states; X50.0XXA Overexertion from strenuous movement or load, initial encounter; Y93.89 Activity, other specified; Y92.89 Other specified places as the place of occurrence of the external cause; Y99.8 Other external cause status

== ENCOUNTER 2024-08-15 00:01 | Emergency (ER) | payer OTHER ==
[~2024-08-15] VITALS: Ht 149.8 cm; Wt 82.6 kg
[~2024-08-15 00:01] MED LIST changes: +CYCLOBENZAPRINE10 MG PO
[2024-08-15 00:16] VITALS: BP 135/84
[2024-08-15 00:46] LABS: BILIRUBIN Negative (Negative); BLOOD Negative (Negative); CLARITY Cloudy (Clear); COLOR Yellow (Yellow); GLUCOSE Negative (Negative); KETONE Trace (Negative); LEUKO ESTERASE Negative (Negative); NITRITE Negative (Negative); PH 5.5 (4.5-8.0); SPECIFIC GRAVITY >= 1.030 (1.001-1.030); UROBILINOGEN 0.2 E.U./dl (0.0-1.0)
[2024-08-15 00:54] LABS: BACTERIA TRACE; EPITHELIAL CELLS TNTC; WBC 0-2 wbc/hpf (0-5)
[2024-08-15] MEDS ORDERED: Ketorolac Tromethamine 60 MG/2 ML VIAL IM ONE (02:45)
== END 2024-08-15 02:53 | disposition home or self-care (01) ==
LOC: ED 00:01
PROVIDERS: Internal Medicine
DX: R10.9 Unspecified abdominal pain (principal); M54.50 Low back pain, unspecified; R39.11 Hesitancy of micturition; R00.0 Tachycardia, unspecified; Z79.899 Other long term (current) drug therapy; Z98.890 Other specified postprocedural states

== ENCOUNTER 2024-09-04 20:33 | Emergency (ER) | payer OTHER ==
[~2024-09-04] VITALS: Ht 149.8 cm; Wt 82.6 kg
[2024-09-04 22:20] VITALS: BP 138/64
[2024-09-04] MEDS ORDERED: AZITHROMYCIN 250 MG TAB PO ONE (22:35)
[2024-09-04] MEDS ORDERED: ALBUTEROL 8 GM INHALER INH ONE (22:35)
== END 2024-09-04 22:37 | disposition home or self-care (01) ==
LOC: ED 20:33
DX: B34.9 Viral infection, unspecified (principal); Z20.822 Contact with and (suspected) exposure to COVID-19; J45.909 Unspecified asthma, uncomplicated; Z79.899 Other long term (current) drug therapy

== ENCOUNTER 2024-11-11 18:12 | Emergency (ER) | payer OTHER ==
[~2024-11-11] VITALS: Ht 149.8 cm; Wt 83.9 kg
[2024-11-11 18:39] VITALS: BP 129/83
[2024-11-11 19:25] LABS: BASO # 0.1 10*3/uL (0.0-0.1); BASO % 0.7 % (0.0-1.0); EOS # 0.1 10*3/uL (0.0-0.4); EOS % 1.1 % (1.0-4.0); MEAN CELL VOLUME 82.1 fl (81.0-99.0); MEAN CORPUSCULAR HGB 25.3 pg (27.0-31.0); MEAN PLATELET VOLUME 11.6 fl (9.6-12.3); MONO # 0.5 10*3/uL (0.1-1.0); MONO % 5.5 % (3.0-9.0); NEUT # 6.5 10*3/uL (2.3-7.9); NEUT % 73.3 % (47.0-73.0); NUCLEATED RED BLOOD CELL 0.0 % (0.0-0.0); NUCLEATED RED BLOOD CELL 0.0 10*3/uL (0.0-0.0); PLATELET COUNT AUTOMATED 345 10*3/uL (130-400); RED CELL DISTRI WIDTH 15.1 % (0-14.5)
[2024-11-11 19:47] LABS: BUN 10 mg/dl (9-23)
[2024-11-11] MEDS ORDERED: Acetaminophen/Oxycodone 5 MG/325 MG TABLET PO ONE (20:50)
== END 2024-11-11 20:54 | disposition home or self-care (01) ==
LOC: ED 18:12
PROVIDERS: Nurse Practitioner Family
DX: M54.2 Cervicalgia (principal); M54.6 Pain in thoracic spine; R11.0 Nausea; R68.84 Jaw pain; J45.909 Unspecified asthma, uncomplicated; F17.200 Nicotine dependence, unspecified, uncomplicated; Z86.16 Personal history of COVID-19

== ENCOUNTER 2024-12-20 12:23 | Emergency (ER) | payer OTHER ==
[~2024-12-20] VITALS: Ht 149.8 cm; Wt 82.1 kg
[2024-12-20 12:33] VITALS: BP 138/95
[2024-12-20] MEDS ORDERED: METHOCARBAMOL 750 MG TAB PO ONE (13:20)
[2024-12-20] MEDS ORDERED: methylPREDNISolone sod succ 1,000 MG/16 ML VIAL IM ONE (13:20)
[2024-12-20] MEDS ORDERED: METHOCARBAMOL500 M1 PO (14:34)
[2024-12-20] MEDS ORDERED: NAPROSYN500 MG PO (14:34)
[2024-12-20] MEDS ORDERED: MEDROL DOSEPAK4 MG PO (14:34)
== END 2024-12-20 14:40 | disposition home or self-care (01) ==
LOC: ED 12:23
DX: M54.12 Radiculopathy, cervical region (principal)